=== PATIENT | male | born 1925 | race Caucasian/White ===

== ENCOUNTER → 2017-02-09 | Outpatient (CLI) | payer MEDICARE, OTHER ==
--- NOTE | 2017-02-09 15:24 | PCVCIMAG ---
APPROVED REPORT Study performed: 02/09/2017 13:27:36 EXAM: Comprehensive 2D, Doppler, and color-flow Echocardiogram Patient Location: Echo lab Other Information Study Quality: Adequate Indications Diabetes Pacemaker CAD Hypertension/HDD PAF 2D Dimensions IVSd: 9.19 (7-11mm)LVOT Diam: 25.37 (18-24mm) LVDd: 42.97 mm PWd: 9.56 (7-11mm) LVDs: 26.38 (25-40mm) Left Atrium: 54.77 (27-40mm) Aortic Root: 25.36 mm LV Single Plane 4CH: 54.90 % LV Single Plane 2CH: 58.84 %Hook's LVEF: 56.87 % Biplane EF: 57.0 % Volumes Left Atrial Volume (Systole) Single Plane 4CH: 103.30 mLSingle Plane 2CH: 81.88 mL Biplane LA Volume: 93.00 mLLA ESV Index: 43.00 mL/m2 Aortic Valve AoV Peak Az.: 1.60 m/s AO Peak Gr.: 12.01 mmHgLVOT Max P.81 mmHg LVOT Max V: 0.88 m/s CHUY Vmax: 2.79 cm2 Mitral Valve MV E Max Az.: 0.91 m/s MV PHT: 52.43 ms MVA (PHT): 4.20 cm2 IVRT: 101.50 ms Pulmonary Valve PV Peak Az.: 0.94 m/sPV Peak Gr.: 3.51 mmHg Tricuspid Valve TR Peak Az.: 4.07 m/s TR Peak Gr.: 66.38 mmHg TV Vmax: 0.94 m/sPA Pressure: 73.00 mmHg Left Ventricle The left ventricle is normal size. Mild basal inferior hypokinesis. Septal flattening consistent with RV pressure overload. There is normal left ventricular wall thickness. Left ventricular systolic function is normal. The left ventricular ejection fraction is within the normal range. LVEF is 55-60%. This study is not technically sufficient to allow evaluation of the LV diastolic function due to atrial fibrillation. Right Ventricle Right ventricle is moderately dilated. The right ventricular systolic function is normal. Atria Left atrium is moderately dilated. Right atrium is severely dilated. Pacemaker lead is present in the right atrium. Aortic Valve The aortic valve is trileaflet, sclerotic No aortic regurgitation is present. There is no aortic valvular stenosis. Mitral Valve The mitral valve is normal in structure. There is no mitral valve regurgitation noted. No evidence of mitral valve stenosis. Tricuspid Valve The tricuspid valve is normal in structure. Moderate to severe tricuspid regurgitation with a PA pressure of 70mmHg Mild pulmonary hypertension. Pulmonic Valve The pulmonary valve is normal in structure. Trace pulmonic regurgitation. Great Vessels The aortic root is normal in size. The ascending aorta is normal in size. IVC is not well visualized. Pericardium There is no pericardial effusion. There is no pleural effusion. <Conclusion> Left ventricular systolic function is normal. Mild basal inferior hypokinesis. Septal flattening consistent with RV pressure overload. LVEF is 55-60%. Right ventricle is moderately dilated. Right atrium is severely dilated. Moderate left atrial enlargement Pacemaker lead is present in the right atrium. The mitral valve is normal in structure. No mitral valve regurgitation The aortic valve is trileaflet, sclerotic, no insufficiency or aortic valvular stenosis. Pulmonary artery pressure of 70mmHg There is no pericardial effusion.
== END | disposition home or self-care (01) ==
LOC: PCVCIMAG 13:07
PROVIDERS: ATTEND Internal Medicine
DX: I37.1 Nonrheumatic pulmonary valve insufficiency (principal); I27.2 Other secondary pulmonary hypertension; I07.1 Rheumatic tricuspid insufficiency; I25.119 Atherosclerotic heart disease of native coronary artery with unspecified angina pectoris; I48.0 Paroxysmal atrial fibrillation; E78.2 Mixed hyperlipidemia; I65.23 Occlusion and stenosis of bilateral carotid arteries; G20 Parkinson's disease; Z95.0 Presence of cardiac pacemaker; Z95.1 Presence of aortocoronary bypass graft; Z95.5 Presence of coronary angioplasty implant and graft; Z96.653 Presence of artificial knee joint, bilateral; Z87.891 Personal history of nicotine dependence; Z88.0 Allergy status to penicillin; Z88.8 Allergy status to other drugs, medicaments and biological substances; Z79.82 Long term (current) use of aspirin; Z79.84 Long term (current) use of oral hypoglycemic drugs
CPT/HCPCS: 80061; 93005; 93280; 93306; G0463